=== PATIENT | male | born 1975 | race Hispanic/Latino ===

== ENCOUNTER 2017-05-27 10:32 | Emergency (ER) | payer BC, OTHER ==
[~2017-05-27] VITALS: Ht 180.3 cm; Wt 104.5 kg
[2017-05-27] MEDS ORDERED: METO1TAB32 PO (10:43)
[2017-05-27] MEDS ORDERED: PROAAER10 (10:43)
[2017-05-27] MEDS ORDERED: ALBU17IN (10:43)
[2017-05-27] MEDS ORDERED: NORCO, ANEXSIA 5/325MG TABLET (HYDROcodone/ACETAMINOPHEN) PO ONE (11:00)
[2017-05-27 11:36] LABS: BASO % 0.2 % (0.0-1.0); EOS # 0.1 10^3/uL (0.0-0.50); EOS % 0.5 % (0.0-3.0); IMMATURE GRANULOCYTE % 0.2 % (0-0); LYMPH # 2.2 10^3/uL (1.5-4.5); LYMPH % 23.3 % (24.0-44.0); MEAN CORPUSCULAR HEMOGLOBIN 30.2 pg (27.0-33.0); MEAN CORPUSCULAR HGB CONC 33.9 g/dl (32.0-36.5); MEAN CORPUSCULAR VOLUME 88.9 fl (80.0-96.0); MONO # 0.6 10^3/uL (0.0-0.8); MONO % 6.9 % (0.0-5.0); NEUTROPHILS # 6.4 10^3/uL (1.8-7.7); NEUTROPHILS % 68.9 % (36.0-66.0); PLATELET COUNT, AUTOMATED 263 10^3/uL (150-450); WHITE BLOOD COUNT 9.2 10^3/uL (4.0-10.0)
[2017-05-27 12:09] LABS: ANION GAP 5 MEQ/L (8-16); BLOOD UREA NITROGEN 12 MG/DL (7-18); CALCIUM LEVEL 9.5 MG/DL (8.5-10.1); CARBON DIOXIDE LEVEL 30 MEQ/L (21-32); CHLORIDE LEVEL 106 MEQ/L (98-107); CREATININE FOR GFR 0.89 MG/DL (0.70-1.30); GLOMERULAR FILTRATION RATE > 60.0 (>60); GLUCOSE, FASTING 84 MG/DL (70-105); POTASSIUM SERUM 4.1 MEQ/L (3.5-5.1); SODIUM LEVEL 141 MEQ/L (136-145)
[2017-05-27] MEDS ORDERED: NS 1,000 ML IV ONE (13:00)
[2017-05-27 13:49] LABS: ERYTHROCYTE SEDIMENTATION RATE 106 mm/hr (0-15)
--- NOTE | 2017-05-27 13:53 | REP ---
Bilateral lower extremity Duplex Doppler venous ultrasound: Real time compression and duplex Doppler interrogation of the bilateral lower extremity deep venous system is performed. Bilaterally, the common femoral, superficial femoral and popliteal veins are fully compressible with transducer pressure and demonstrate normal spontaneous and phasic flow, without evidence of deep venous thrombosis. Impression: No evidence of deep venous thrombosis of the bilateral lower extremity femoral popliteal venous system. Signed by Mati Millan MD 05/27/2017 01:44 P
[2017-05-27 14:31] LABS: URIC ACID 4.7 MG/DL (3.5-7.2)
[2017-05-27] MEDS ORDERED: KETOROLAC 30 MG/ML VIAL (J1885) IV ONE (14:45)
[2017-05-27] MEDS ORDERED: MORPHINE 4 MG/ML 1ML SYRINGE IV ONE (14:45)
[2017-05-27] MEDS ORDERED: OXYC1TAB23 PO (14:48)
[2017-05-27] MEDS ORDERED: IBUP-1022 PO (14:48)
[2017-05-27 15:18] VITALS: BP 130/75
--- NOTE | 2017-05-27 20:55 | ECGEPIP ---
Stationary ECG Study [facility] - ED Test Date: 2017-05-27 Pat Name: KAROLINA JACOBS Department: Room: - Gender: M Aml Analyst: lucia : 1975 Requested By: DENIS BELLE Order Number: [id number] Reading MD: Neris Wilson Measurements Intervals [place]ain Rate: 57 P: 25 HI: 133 QRS: -17 QRSD: 94 T: 11 QT: 420 QTc: 410 Interpretive Statements SINUS BRADYCARDIA SIMILAR 10/20/14 Electronically Signed On 05-27-2017 20:55:13 EDT by Neris Wilson
== END 2017-05-27 15:31 | disposition home or self-care (01) ==
LOC: M ED 10:32
DX: R00.1 Bradycardia, unspecified (principal); J45.909 Unspecified asthma, uncomplicated; M05.30 Rheumatoid heart disease with rheumatoid arthritis of unspecified site; Z79.899 Other long term (current) drug therapy; Z91.018 Allergy to other foods
CPT/HCPCS: 80048; 81001; 82550; 82553; 84484; 84550; 85025; 85652; 86140; 93005; 93970; 96374; 96375; 99283; J1885

== ENCOUNTER 2017-05-28 11:52 | Emergency (ER) | payer OTHER ==
[~2017-05-28] VITALS: Ht 180.3 cm; Wt 102.3 kg
[~2017-05-28 11:52] MED LIST: ALBU17IN; IBUP-1022 PO; METO1TAB32 PO; OXYC1TAB23 PO; PROAAER10
[2017-05-28 11:53] VITALS: BP 152/74
== END 2017-05-28 13:00 | disposition left against medical advice (07) ==
LOC: M ED 11:52
DX: Z51.89 Encounter for other specified aftercare (principal); Z53.21 Procedure and treatment not carried out due to patient leaving prior to being seen by health care provider

== ENCOUNTER → 2017-11-29 | Outpatient (REF) | payer OTHER ==
[2017-11-29 14:21] LABS: INFLUENZA A AMPLIFICATION NEGATIVE (NEGATIVE); INFLUENZA B AMPLIFICATION NEGATIVE (NEGATIVE)
== END ==
LOC: M LAB REF 11:57
DX: J11.1 Influenza due to unidentified influenza virus with other respiratory manifestations (principal)
CPT/HCPCS: 87502

== ENCOUNTER → 2020-01-09 | Outpatient (REF) | payer BC | LOC: M LAB REF 17:29 | PROVIDERS: ATTEND Physician Assistant Medical | DX: J02.9 Acute pharyngitis, unspecified (principal); Z11.59 Encounter for screening for other viral diseases | CPT/HCPCS: 87070; 87430; U0003 ==

== ENCOUNTER → 2024-04-29 | Outpatient (CLI) | payer BC ==
[2024-04-29 11:39] LABS: HIV 1&2 SCREEN NEGATIVE (NEGATIVE)
[2024-04-29 11:47] LABS: HEPATITIS C VIRUS ABY INDEX 0.05 INDEX (<0.8)
[2024-04-29 12:52] LABS: Trichomonas vaginalis (AMP) NOT DETECTED (NEGATIVE)
[2024-04-29 13:15] LABS: GC DNA AMPLIFICATION NEGATIVE (NEGATIVE)
== END ==
LOC: M LAB 08:05
PROVIDERS: ATTEND Physician Assistant
DX: Z11.3 Encounter for screening for infections with a predominantly sexual mode of transmission (principal); Z11.4 Encounter for screening for human immunodeficiency virus [HIV]

== ENCOUNTER → 2024-10-24 | Outpatient (CLI) | payer BC ==
[2024-10-24 12:45] LABS: HEMATOCRIT 40.1 % (42.0-52.0); HEMOGLOBIN 13.4 g/dl (13.5-17.5); MEAN CORPUSCULAR HEMOGLOBIN 30.9 pg (27.0-33.0); MEAN CORPUSCULAR HGB CONC 33.4 g/dl (32.0-36.5); MEAN CORPUSCULAR VOLUME 92.4 fl (80.0-96.0); PLATELET COUNT, AUTOMATED 190 10^3/uL (150-450); RED BLOOD COUNT 4.34 10^6/uL (4.30-6.10); WHITE BLOOD COUNT 6.4 10^3/uL (4.0-10.0)
[2024-10-24 12:54] LABS: HEMOGLOBIN A1c 5.4 % (4.0-6.0)
[2024-10-24 13:20] LABS: ALKALINE PHOSPHATASE 59 U/L (40-129); ALT/SGPT 15 U/L (7.0-40); AST/SGOT 14 U/L (<34); BILIRUBIN,TOTAL 0.5 MG/DL (0.3-1.2); BLOOD UREA NITROGEN 14 MG/DL (9-23); CALCIUM LEVEL 9.6 MG/DL (8.5-10.1); CARBON DIOXIDE LEVEL 28 MMOL/L (20-31); CHLORIDE LEVEL 107 MMOL/L (98-107); CHOLESTEROL LEVEL 194 MG/DL (<200); CHOLESTEROL RISK RATIO 3.48 (<5); CREATININE FOR GFR 0.91 MG/DL (0.70-1.30); GLOMERULAR FILTRATION RATE > 60.0 (>60); GLUCOSE, FASTING 86 MG/DL (60-100); HDL CHOLESTEROL 55.6 MG/DL (>40); LDL CHOLESTEROL 117.6 MG/DL (<100); NON-HDL-C 138.4 MG/DL; POTASSIUM SERUM 4.7 MMOL/L (3.5-5.1); PROSTATIC SPECIFIC AG MONITOR 1.06 NG/ML (< 4.00); SODIUM LEVEL 142 MMOL/L (136-145); TOTAL PROTEIN 7.8 G/DL (5.7-8.2); TRIGLYCERIDES LEVEL 104 MG/DL (<150)
[2024-10-24 13:21] LABS: THYROID STIMULATING HORMONE 0.786 uIU/ML (0.55-4.78); TOTAL 25(OH) VITAMIN D 15.3 NG/ML (20.0-100.0)
[2024-10-24 13:22] LABS: TESTOSTERONE 301 NG/DL (241-827)
== END ==
LOC: M RAD 10:58
PROVIDERS: ATTEND Family Medicine
DX: I10 Essential (primary) hypertension (principal); R53.83 Other fatigue; E03.9 Hypothyroidism, unspecified; M25.511 Pain in right shoulder; M19.011 Primary osteoarthritis, right shoulder

== ENCOUNTER → 2025-06-21 | Outpatient (REF) | payer BC ==
[~2025-06-21] MED LIST changes: -IBUP-1022 PO; +IBUP600T42 PO
== END ==
LOC: M SFHCPLAZ 15:14
PROVIDERS: ATTEND Family Medicine
DX: Z53.9 Procedure and treatment not carried out, unspecified reason (principal)

== ENCOUNTER → 2025-07-23 | Outpatient (CLI) | payer BC | LOC: M PLAIMG 08:21 | PROVIDERS: ATTEND Family Medicine | DX: R10.31 Right lower quadrant pain (principal); K57.90 Diverticulosis of intestine, part unspecified, without perforation or abscess without bleeding ==